=== PATIENT | male | born 2000 | race Caucasian/White ===

== ENCOUNTER 2020-01-27 06:40 | Outpatient (REF) | payer OTHER, SELFPAY | END 2020-01-27 06:41 | disposition home or self-care (01) | LOC: HO.LAB 06:40 | PROVIDERS: Visit Provider Internal Medicine | DX: Z20.828 Contact with and (suspected) exposure to other viral communicable diseases (principal) | CPT/HCPCS: C9803; U0003 ==

== ENCOUNTER 2024-03-13 18:23 | Emergency (ER) | payer OTHER, SELFPAY ==
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
[2024-03-13 18:34] VITALS: BP 156/77; PULSE 128; RESP 16; TEMP 37.1; O2SAT 100; BMI 35.9
--- NOTE | 2024-03-13 18:55 | ECG_ITS ---
Test Reason : RAPID HEART RATE Blood Pressure : / mmHG Vent. Rate : 107 BPM Atrial Rate : 107 BPM P-R Int : 142 ms QRS Dur : 092 ms QT Int : 332 ms P-R-T Axes : 060 036 033 degrees QTc Int : 443 ms Sinus tachycardia Otherwise normal ECG No previous ECGs available Referred By: Elodia Hughes Electronically Signed By:WILBERT WALSH MD
[2024-03-13] MEDS: Acetaminophen 325 MG TABLET 650 MG PO (19:02)
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
[2024-03-13 20:43] VITALS: BP 141/87; PULSE 105; RESP 16; TEMP 37.2; O2SAT 100
== END 2024-03-13 20:44 | disposition home or self-care (01) ==
PROVIDERS: Emergency Provider Emergency Medicine Emergency Medical Services
DX: S06.0X0A Concussion without loss of consciousness, initial encounter (principal); Y04.2XXA Assault by strike against or bumped into by another person, initial encounter; M25.521 Pain in right elbow; Y93.89 Activity, other specified; Y92.239 Unspecified place in hospital as the place of occurrence of the external cause; Y99.0 Civilian activity done for income or pay
CPT/HCPCS: 70450; 73080; 93005; 99284

== ENCOUNTER → 2024-03-13 18:55 | Outpatient (BNV) | payer OTHER, SELFPAY | PROVIDERS: Emergency Provider Emergency Medicine Emergency Medical Services; Visit Provider Internal Medicine Cardiovascular Disease | DX: R00.0 Tachycardia, unspecified (principal) | CPT/HCPCS: 93010 ==

== ENCOUNTER → 2024-03-13 19:23 | Outpatient (BNV) | payer OTHER, SELFPAY | PROVIDERS: Emergency Provider Emergency Medicine Emergency Medical Services; Visit Provider Radiology Diagnostic Radiology | DX: M25.521 Pain in right elbow (principal); S09.90XA Unspecified injury of head, initial encounter | CPT/HCPCS: 70450; 73080 ==